=== PATIENT | female | born 2000 | race Two or more races ===

== ENCOUNTER 2024-09-11 12:43 | Emergency (ER) | payer MEDICAID ==
[~2024-09-11] VITALS: Ht 160 cm; Wt 56.4 kg
[2024-09-11 12:56] VITALS: BP 125/78; PULSE 89; RESP 14; TEMP 98.1; O2SAT 99
[2024-09-11] MEDS ORDERED: ketorolac trometh 30MG/ML vial 30 MG/ML VIAL IM STA (14:35)
--- NOTE | 2024-09-11 14:37 | Physician Documentation ---
History of Present Illness ~ Chief Complaint: Eye Pain Stated Complaint: L EYE PAIN Time Seen by MD: 13:09 Source: patient, family, RN/MD HPI Patient is seen today with complaints of foreign body sensation and discomfort in her left eye after she was brushing her eyebrows with a small brush and it fell and hit her left eyeball. She states this occurred yesterday morning. She has no other concern or complaint at this time. Medication Reconciliation Allergies: Coded Allergies: codeine (Verified Allergy, Unknown, UNABLE TO RECALL, 09/11/24) Uncoded Allergies: TAPE (Allergy, Unknown, UNKNOWN, 09/11/24) Review of Systems Constitutional: Denies: chills, fever, weakness Eyes: Denies: pain, blurred vision ENT: Denies: ear pain, nose pain, throat pain, mouth pain Respiratory: Denies: cough, shortness of breath Cardiovascular: Denies: chest pain, palpitations Gastrointestinal: Denies: abdominal pain, nausea, vomiting Genitourinary: Denies: burning, dysuria Female Genitalia: Denies: vaginal discharge, pelvic pain Neurological: Denies: headache, dizziness Musculoskeletal: Denies: pain, swelling Integumentary: Denies: rash, lesions Allergic/Immunologic: Denies: hives, itching Hematologic/Lymphatic: Denies: no symptoms reported Psychiatric: Denies: depression, anxiety Physical Exam Vital Signs: Temperature: 98.1, Heart Rate: 89, Respiratory Rate: 14, BP: 125/78, Pulse Oximetry: 99, Weight: 56.360 Oxygen Flow Rate: 0 Physical Exam General: Patient on exam is Awake and Alert, no acute distress. HEENT: Patient did have Wood's lamp examination that did show corneal abrasion of the left eye any centralized 6 o'clock position. I do not appreciate any foreign body. Conjunctiva pink, Sclera clear, Mucus Membranes moist. Neck: Supple without masses and tenderness. Resp: Unlabored. Lungs clear to auscultation bilaterally. Heart: Regular Rate and rhythm, normal S1 and S2 without murmur, rub or gallop. Extremities: No cyanosis,clubbing or edema. Skin: Warm and Dry. Procedures Eye Procedure Procedure Note Procedure note: Two drops of proparacaine were administered into the left eye. Fluorescein stain administered appropriately and Wood's lamp used to appreciate corneal abrasion of left cornea in his centralized 6 o'clock position. I do not appreciate any foreign body. Progress Results/Orders Results/Orders Vital Signs 09/11/24 12:56 Temp 98.1 Pulse 89 Resp 14 B/P (MAP) 125/78 Pulse Ox 99 O2 Flow Rate 0 Medical Decision Making Findings Patient is seen today with complaints of foreign body sensation and discomfort in her left eye after she was brushing her eyebrows with a small brush and it fell and hit her left eyeball. She states this occurred yesterday morning. She has no other concern or complaint at this time. Patient was administered antibiotic drops with hydrocortisone ophthalmic drops in the ED today in the left eye. Patient will continue antibiotics/steroid ophthalmic drops one drop three to 4 times a day for 10 days into the left eye. Patient will follow up with primary care for referral to Ophthalmology in 2-5 days if no better as needed sooner. Return to ED with any worsening, concerning or changing symptoms. Departure Disposition: 01 HOME / SELF CARE / HOMELESS Impression: Primary Impression: Corneal abrasion Qualified Codes: S05.02XA - Injury of conjunctiva and corneal abrasion without foreign body, left eye, initial encounter Condition: Stable Discharge Instructions: Corneal Abrasion Additional Instructions: Patient was administered antibiotic drops with hydrocortisone ophthalmic drops in the ED today in the left eye. Patient will continue antibiotics/steroid ophthalmic drops one drop three to 4 times a day for 10 days into the left eye. Patient will follow up with primary care for referral to Ophthalmology in 2-5 days if no better as needed sooner. Return to ED with any worsening, concerning or changing symptoms. Referrals: NO PRIMARY CARE PROVIDER (PCP) Signature Scribe Signature: No scribe Attestation: No scribe NITHIN TORRES PAC September 11, 2024 14:37
[2024-09-11] MEDS: neomy sulf/polymyx B sulf/HC 7.5ml ophthalmic suspension LEFTEYE STA (15:41)
== END 2024-09-11 15:44 | disposition home or self-care (01) ==
LOC: ER 12:44
DX: S05.02XA Injury of conjunctiva and corneal abrasion without foreign body, left eye, initial encounter (principal); Z88.5 Allergy status to narcotic agent; W20.8XXA Other cause of strike by thrown, projected or falling object, initial encounter; Y93.89 Activity, other specified; Y92.89 Other specified places as the place of occurrence of the external cause; Y99.8 Other external cause status
CPT/HCPCS: 99283

== ENCOUNTER 2025-04-11 16:17 | Emergency (ER) | payer MEDICAID ==
[~2025-04-11] VITALS: Ht 157.5 cm; Wt 56.2 kg
[2025-04-11 16:21] VITALS: BP 127/90; PULSE 103; RESP 16; TEMP 98.4; O2SAT 99
--- NOTE | 2025-04-11 17:17 | Physician Documentation ---
History of Present Illness ~ Chief Complaint: Cold, cough & congestion Stated Complaint: ALL OVER NUMBNESS Time Seen by MD: 16:48 HPI This is a 24-year-old female who presents with one-week of cough, this is adjustment, sore throat, generalized fatigue, nausea, poor appetite, and one episode of vomiting today. Patient reports subjective fever intermittently. Patient reports additional concern for intermittent unusual feeling in her hands described as "like when your arm falls asleep though without weakness. Medication Reconciliation Allergies: Coded Allergies: codeine (Verified Allergy, Unknown, UNABLE TO RECALL, 04/11/25) Uncoded Allergies: TAPE (Allergy, Unknown, UNKNOWN, 09/11/24) Scheduled Benzonatate* (Benzonatate*), 1-2 CAP PO Q4H Scheduled PRN ONDANSETRON ODT 4mg tablet (Ondansetron Odt), 1 TAB PO Q6H PRN PRN for nausea/vomiting Past Medical History Past Medical History: No Pertinent History Review of Systems ROS As stated above in the HPI, otherwise all systems are reviewed and negative. Physical Exam Vital Signs: Temperature: 98.4, Source: Temporal, Heart Rate: 103, Respiratory Rate: 16, BP: 127/90, Pulse Oximetry: 99, Weight: 56.200 Oxygen Flow Rate: 0 Physical Exam VITALS: Reviewed and as above. GENERAL: Alert, nontoxic appearing, no apparent distress. HEENT: Pharynx mildly erythematous without tonsillar swelling, patches or exudates RESPIRATORY: No increased work of breathing, no respiratory distress, speaking in full clear sentences, clear lung sounds in all ahuja CV: Regular rate and rhythm no murmur NEURO: Sensation and strength equal in bilateral upper extremities Progress Results/Orders Results/Orders Vital Signs 04/11/25 16:21 Temp 98.4 Pulse 103 Resp 16 B/P (MAP) 127/90 Pulse Ox 99 O2 Flow Rate 0 Medical Decision Making Additional information obtaine: N/A Findings This otherwise healthy and well appearing 24 year old female presented with cough, nasal congestion, sore throat, nausea, bodyaches, and fatigue consistent with viral syndrome and uncomplicated upper respiratory illness. Patient is otherwise well appearing, non-toxic, and well hydrated. Physical exam benign including clear lung sounds in all ahuja, no respiratory distress or increased work of breathing.Vital signs stable without clinically significant hypoxia. Antibiotics not indicated due to low suspicion for bacterial etiology. Patient is appropriate for outpatient follow up and provided homecare instructions, follow up instructions, and return to care precautions. Differential Dx:Considerations: Include: Allergic rhinitis, Influenza, Otitis media, Peritonsillar abscess, Pharyngitis-Diphtheria, Pharyngitis-Streptoccal, Pharyngitis-Viral, Pneumonia, Pnuemonitis, Sinusitis, URI Departure Time of Disposition: 17:17 Disposition: 01 HOME / SELF CARE / HOMELESS Impression: Primary Impression: Viral illness Condition: Improved Discharge Instructions: Upper Respiratory Infection, Adult Additional Instructions: Your symptoms seem to be viral illness, please use the prescribed Tessalon to help with cough that disturbs her sleep, you may use the prescribed Zofran for nausea or vomiting that prevents you from eating or drinking. A well hydrated and rest. Please follow up with your primary care provider in the next few days. Please return to the emergency department for any new or worsening concerning symptoms including but not limited to difficulty breathing, chest pain, or a fever over 100.4 that does not lower with ibuprofen or Tylenol. Referrals: NO PRIMARY CARE PROVIDER (PCP) Prescriptions ONDANSETRON ODT 4mg tablet (ONDANSETRON ODT) 4 Mg Tab.rapdis 1 TAB PO Q6H PRN PRN for nausea/vomiting for 4 Days, #16 TAB 0 Refills Prov: LEYDA ROD 04/11/25 Benzonatate* (Benzonatate*) 100 Mg Capsule 1-2 CAP PO Q4H for cough for 5 Days, #60 CAP Prov: LEYDA ROD 04/11/25 Education Educated: Patient Educated regarding: diagnosis, treatment, prognosis, need for follow up Signature Scribe Signature: No Scribe Attestation: The note accurately reflects work and decisions made by me.COREY Del Valle 04/12/25 11:14 LEYDA ROD Apr 11, 2025 17:17
[2025-04-11] MEDS ORDERED: BENZ-38 PO (17:18)
[2025-04-11] MEDS ORDERED: ONDA-243 PO (17:18)
== END 2025-04-11 17:24 | disposition home or self-care (01) ==
LOC: ER 16:17
DX: B34.9 Viral infection, unspecified (principal); R53.83 Other fatigue; Z88.5 Allergy status to narcotic agent; Z79.899 Other long term (current) drug therapy
CPT/HCPCS: 99283